=== PATIENT | male | born 1995 | race Caucasian/White ===

== ENCOUNTER 2018-11-30 18:48 | Emergency (ER) | payer MEDICAID ==
[~2018-11-30] VITALS: Ht 170.2 cm; Wt 77.1 kg
[2018-11-30 19:28] VITALS: BP 115/66
--- NOTE | 2018-11-30 19:31 | NUR ---
TO LOBBY A/W BED, AMBULATORY
--- NOTE | 2018-11-30 19:47 | NUR ---
PT AMBULATED TO BED 5
[2018-11-30 19:51] VITALS: BP 115/66
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
--- NOTE | 2018-11-30 21:38 | NUR ---
PT TO RADIOLOGY
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
== END 2018-11-30 22:03 | disposition home or self-care (01) ==
LOC: MED 18:48
DX: S40.012A Contusion of left shoulder, initial encounter (principal); S20.229A Contusion of unspecified back wall of thorax, initial encounter; S80.12XA Contusion of left lower leg, initial encounter; S00.432A Contusion of left ear, initial encounter; S10.83XA Contusion of other specified part of neck, initial encounter; S20.219A Contusion of unspecified front wall of thorax, initial encounter; M54.6 Pain in thoracic spine; Y03.0XXA Assault by being hit or run over by motor vehicle, initial encounter; Y93.89 Activity, other specified; Y92.89 Other specified places as the place of occurrence of the external cause; Y99.8 Other external cause status
CPT/HCPCS: 72072; 73000; 73630; 99283